=== PATIENT | female | born 1985 | race African-American/Black ===

== ENCOUNTER 2018-06-14 04:19 | Inpatient (IN) ==
[2018-06-14 06:04] LABS: Apearance,Urine CLEAR (Clear); Bilirubin,Urine Negative (Negative); Blood, Urine Negative (Negative); Glucose,Urine (UA) Negative (Negative); Ketones,Urine Negative (Negative); Nitrite,Urine Negative (Negative); Protein,Urine Negative; RBC,Urine <1 /HPF (0-4); Squamous Epithelial Cell,Urine Occasional /HPF (0-10); Urine Color Straw (Yellow); Urine Specific Gravity 1.005 (1.001-1.035); Urine Urobilinogen < 2.0 EU/DL (0.2-1.0); WBC,Urine <1 /HPF (0-6)
[2018-06-14] MEDS ORDERED: ONDANSETRON 4 MG/2 ML VIAL IM ONE (06:19)
[2018-06-14] MEDS ORDERED: LACTATED RINGERS 1,000 ML IV SCH ×2 (07:00→16:03)
[2018-06-14] MEDS ORDERED: OXYTOCIN/LR 20 UNIT/1,000 ML BAG IV ONE ×2 (08:51→16:03)
[2018-06-14] MEDS ORDERED: OXYTOCIN 10 UNIT/ML VIAL ONE (09:02)
[2018-06-14] MEDS ORDERED: ceFAZolin 2,000 MG in PREMIX 1 EACH IV ONE (09:40)
[2018-06-14 09:45] LABS: Basophils # 0.1 10*3/uL (0.0-0.2); Basophils % 0.4 % (0.0-0.8); Eosinophils # 0.1 10*3/uL (0.0-0.87); Eosinophils % 0.5 % (0.00-10.9); Hematocrit 35.3 VOL% (35.7-47.0); Hemoglobin 10.5 GM/DL (12.0-16.0); Immature Granulocytes % 1.5 %; Immature Granulocytes Absolute 0.21 #; Lymphocytes % 14.7 % (21.3-54.2); Mean Corpuscular HGB Conc 29.7 GM/DL (32-36); Mean Corpuscular Hemoglobin 28 PG (27-34); Mean Corpuscular Volume 93.1 FL (87-102); Mean Platelet Volume 11.2 FL (9.6-12.0); Monocytes % 7.1 % (1.7-12.7); NRBC # 0.02 10*3/uL; Neutrophils # 10.5 10*3/uL (1.4-7.4); Neutrophils % 75.8 % (38.7-73.9); Platelet Count 220 T/CUMM (130-400); Red Blood Count 3.79 MC/CUMM (3.8-5.5); Red Cell Distribution Width 15.3 % (9.3-17.3); White Blood Count 13.8 T/CUMM (4-12)
[2018-06-14] MEDS ORDERED: SEVOFLURANE 1 UNIT/15 MINUTE INH ONE (09:46)
[2018-06-14] MEDS ORDERED: HYDROmorphone 2 MG/1 ML VIAL ONE (09:46)
[2018-06-14] MEDS ORDERED: PROPOFOL 200 MG/20 ML VIAL IV ONE (09:46)
[2018-06-14] MEDS ORDERED: ACETAMINOPHEN 1,000 MG/100 ML VIAL IV ONE (09:47)
[2018-06-14] MEDS ORDERED: MIDAZOLAM 2 MG/2 ML VIAL ONE (09:47)
[2018-06-14] MEDS ORDERED: GLYCOPYRROLATE 0.4 MG/2 ML VIAL ONE (09:47)
[2018-06-14] MEDS ORDERED: SUCCINYLCHOLINE 200 MG/10 ML VIAL ONE (09:47)
[2018-06-14] MEDS ORDERED: KETOROLAC 30 MG/1 ML VIAL ONE (09:47)
[2018-06-14] MEDS ORDERED: PROMETHAZINE 25 MG/1 ML VIAL ONE (09:47)
[2018-06-14] MEDS ORDERED: ROCURONIUM 100 MG/10 ML VIAL IV ONE (09:48)
[2018-06-14] MEDS ORDERED: LACTATED RINGERS 2,000 ML IV ONE (09:48)
[2018-06-14] MEDS ORDERED: NEOSTIGMINE 10 MG/10 ML VIAL ONE (09:48)
[2018-06-14] MEDS ORDERED: diphenhydrAMINE 50 MG/1 ML VIAL IV PRN (10:24)
[2018-06-14 10:34] LABS: Albumin 2.5 G/DL (3.4-5.0); Bilirubin,Total 0.4 MG/DL (0.2-1.0); Calcium 8.6 MG/DL (8.5-10.1); Osmolality,Calculated 270.7 MOS/KG (273-304); Potassium 3.8 MMOL/L (3.5-5.1); Total Protein 7.2 G/DL (6.4-8.3)
[2018-06-14] MEDS: HYDROmorphone 2 MG/1 ML VIAL IV PRN ×4 (10:35→23:16)
[2018-06-14] MEDS ORDERED: PROMETHAZINE 25 MG/1 ML VIAL IM ONE (10:41)
[2018-06-14 11:39] LABS: Amorphous Crystals,Urine Occasional /HPF (Few); Apearance,Urine CLEAR (Clear); Bilirubin,Urine Negative (Negative); Blood, Urine Small mg/dL (Negative); Glucose,Urine (UA) Negative (Negative); Ketones,Urine 5 mg/dL (Negative); Nitrite,Urine Negative (Negative); Protein,Urine Negative; RBC,Urine 2 /HPF (0-4); Urine Color Colorless (Yellow); Urine Specific Gravity 1.004 (1.001-1.035); Urine Urobilinogen < 2.0 EU/DL (0.2-1.0)
[2018-06-14] MEDS ORDERED: ONDANSETRON 4 MG/2 ML VIAL IV PRN ×2 (16:03→23:03)
[2018-06-14] MEDS ORDERED: RHO(D) IMMUNE GLOBULIN 300 MCG SYRINGE IM ONE (16:03)
[2018-06-14] MEDS ORDERED: ACETAMINOPHEN 325 MG TABLET PO PRN (16:03)
[2018-06-14] MEDS: KETOROLAC 30 MG/1 ML VIAL IV SCH ×2 (16:30→21:58)
[2018-06-14] MEDS: ceFAZolin 1,000 MG in SYRINGE 1 EACH IV SCH (16:45)
[2018-06-14] MEDS: DOCUSATE SODIUM 100 MG CAPSULE PO SCH (21:57)
[2018-06-14 22:50] LABS: Basophils % 0.3 % (0.0-0.8); Eosinophils # 0.1 10*3/uL (0.0-0.87); Eosinophils % 0.5 % (0.00-10.9); Hematocrit 25.9 VOL% (35.7-47.0); Immature Granulocytes % 0.7 %; Immature Granulocytes Absolute 0.07 #; Lymphocytes # 1.7 10*3/uL (1.4-4.0); Lymphocytes % 15.8 % (21.3-54.2); Mean Corpuscular HGB Conc 30.9 GM/DL (32-36); Mean Corpuscular Hemoglobin 28 PG (27-34); Mean Corpuscular Volume 89.6 FL (87-102); Mean Platelet Volume 11.1 FL (9.6-12.0); Monocytes # 0.9 10*3/uL (0.11-0.8); Monocytes % 8.6 % (1.7-12.7); Neutrophils # 7.9 10*3/uL (1.4-7.4); Neutrophils % 74.1 % (38.7-73.9); Platelet Count 182 T/CUMM (130-400); Red Blood Count 2.89 MC/CUMM (3.8-5.5); Red Cell Distribution Width 15.2 % (9.3-17.3); White Blood Count 10.6 T/CUMM (4-12)
[2018-06-14] MEDS: ZALEPLON 5 MG CAPSULE PO PRN (23:57)
[2018-06-15] MEDS: ceFAZolin 1,000 MG in SYRINGE 1 EACH IV SCH (00:02)
[2018-06-15] MEDS: KETOROLAC 30 MG/1 ML VIAL IV SCH (03:29)
[2018-06-15] MEDS: SIMETHICONE CHEW 80 MG TABLET PO PRN ×3 (03:51→21:24)
[2018-06-15 05:48] LABS: Basophils % 0.3 % (0.0-0.8); Eosinophils # 0.1 10*3/uL (0.0-0.87); Eosinophils % 0.7 % (0.00-10.9); Hemoglobin 8.6 GM/DL (12.0-16.0); Immature Granulocytes Absolute 0.09 #; Lymphocytes # 1.2 10*3/uL (1.4-4.0); Lymphocytes % 13.4 % (21.3-54.2); Mean Corpuscular HGB Conc 30.7 GM/DL (32-36); Mean Corpuscular Hemoglobin 28 PG (27-34); Mean Corpuscular Volume 90.6 FL (87-102); Monocytes # 0.8 10*3/uL (0.11-0.8); Monocytes % 9.5 % (1.7-12.7); Neutrophils # 6.6 10*3/uL (1.4-7.4); Neutrophils % 75.1 % (38.7-73.9); Platelet Count 197 T/CUMM (130-400); Red Blood Count 3.09 MC/CUMM (3.8-5.5); Red Cell Distribution Width 15.1 % (9.3-17.3); White Blood Count 8.8 T/CUMM (4-12)
[2018-06-15] MEDS: MAGNESIUM HYDROXIDE SUSP 30 ML UDCUP PO PRN ×2 (09:43→21:23)
[2018-06-15] MEDS: MULTIVITAMIN (PRENATAL) TABLET PO SCH (09:43)
[2018-06-15] MEDS: DOCUSATE SODIUM 100 MG CAPSULE PO SCH ×2 (09:43→21:24)
[2018-06-15] MEDS ORDERED: IBUPROFEN 800 MG TABLET PO SCH (10:30)
[2018-06-15] MEDS: IBUPROFEN 800 MG TABLET PO SCH (19:39)
[2018-06-15] MEDS ORDERED: SERTRALINE 50 MG TABLET PO SCH (21:00)
[2018-06-15] MEDS ORDERED: BISACODYL 10 MG SUPP RECTAL PRN (22:16)
[2018-06-15] MEDS: ZALEPLON 5 MG CAPSULE PO PRN (22:36)
[2018-06-16] MEDS: IBUPROFEN 800 MG TABLET PO SCH ×2 (04:38→11:54)
[2018-06-16] MEDS: SIMETHICONE CHEW 80 MG TABLET PO PRN (06:43)
[2018-06-16] MEDS: MULTIVITAMIN (PRENATAL) TABLET PO SCH (08:46)
[2018-06-16] MEDS: DOCUSATE SODIUM 100 MG CAPSULE PO SCH (08:46)
[2018-06-16] MEDS: MAGNESIUM HYDROXIDE SUSP 30 ML UDCUP PO PRN (08:47)
[2018-06-16 11:52] VITALS: BP 155/84
== END 2018-06-16 13:05 | disposition home or self-care (01) | DRG 540 ==
LOC: N.LDOUT 04:19 → N.LD 04:24 → N.OB 16:01
PROVIDERS: ADMIT Obstetrics & Gynecology; ATTEND Obstetrics & Gynecology
PROC: LDCSECT (ICD-10-PCS; 2018-06-14 08:40)